=== PATIENT | male | born 1985 | race Asian ===

== ENCOUNTER 2017-03-17 10:00 | Inpatient (IN) | payer OTHER ==
[~2017-03-17] VITALS: Ht 172.7 cm; Wt 90.3 kg
[2017-03-17 10:40] LABS: BASOPHIL % 0.2 % (0-2); PLATELET COUNT 350 x10^3mcL (130-400); RED CELL DISTRIBUTION WIDTH 14.2 % (11.5-14.5)
[2017-03-17 10:48] LABS: CALCIUM 8.5 mg/dL (8.5-10.1); CARBON DIOXIDE 25.6 mmol/L (21-32); CHLORIDE SERUM 100 mmol/L (98-107); CREATININE SERUM 1.2 mg/dL (0.7-1.3); GFR1 > 60 mL/min; GLUCOSE SERUM 202 mg/dL (74-106); POTASSIUM SERUM 3.3 mmol/L (3.5-5.1); SODIUM SERUM 137 mmol/L (136-145)
[2017-03-17 10:52] LABS: ALBUMIN 4.3 g/dL (3.4-5.0); ALKALINE PHOSPHATASE 83 U/L (46-116); ALT/SGPT 42 U/L (16-63); AST/SGOT 17 U/L (15-37); BILIRUBIN TOTAL 0.4 mg/dL (0.20-1.00); MAGNESIUM 1.5 mg/dL (1.8-2.4); TOTAL PROTEIN, SERUM 7.8 g/dL (6.4-8.2)
[2017-03-17] MEDS ORDERED: BENADRYL ALLERG25 M1 PO (12:09)
[2017-03-17] MEDS ORDERED: CLONAZEPAM0.5 MG (12:09)
[2017-03-17] MEDS ORDERED: GEODON20 MG PO (12:09)
[2017-03-17 12:32] LABS: microscopic required? NO
[2017-03-17 12:40] LABS: UA SPECIFIC GRAVITY <=1.005 (1.005-1.035); urine erythrocyte NEGATIVE (NEGATIVE)
[2017-03-17 12:52] LABS: AMPHETAMINE QUAL UR NONE DETECTED (NEG <=1000)
[2017-03-17 13:02] LABS: PHOSPHOROUS 1.9 mg/dL (2.5-4.9)
[2017-03-17 13:06] LABS: CHOLESTEROL/HDL RATIO 4.2
[2017-03-17 13:13] LABS: FREE T4 1.06 ng/dL (0.76-1.46); FREE THYROXINE INDEX 2.8 ug/dL (1.4-4.5); T4(THYROXINE) 7.1 ug/dL (4.7-13.3)
[2017-03-17 13:26] LABS: T3 TOTAL 1.14 ng/mL
[2017-03-17 13:34] VITALS: BP 156/89
[2017-03-17 13:44] VITALS: BP 156/89
[2017-03-17] MEDS ORDERED: CLONAZEPAM0.5 MG PO (15:16)
[2017-03-17] MEDS ORDERED: BENZTROPINE MESY2 MG PO (15:21)
[2017-03-17 17:05] VITALS: BP 135/86
[2017-03-17 21:32] VITALS: BP 125/83
[2017-03-18 06:17] VITALS: BP 108/63
[2017-03-18 06:33] LABS: BASOPHIL % 0.3 % (0-2); PLATELET COUNT 296 x10^3mcL (130-400)
[2017-03-18 06:35] LABS: CALCIUM 8.2 mg/dL (8.5-10.1); CARBON DIOXIDE 25.4 mmol/L (21-32); CHLORIDE SERUM 106 mmol/L (98-107); CREATININE SERUM 1.1 mg/dL (0.7-1.3); GFR1 > 60 mL/min; GLUCOSE SERUM 91 mg/dL (74-106); MAGNESIUM 2.2 mg/dL (1.8-2.4); PHOSPHOROUS 3.2 mg/dL (2.5-4.9); SODIUM SERUM 141 mmol/L (136-145)
[2017-03-18 06:45] LABS: RED CELL DISTRIBUTION WIDTH 14.6 % (11.5-14.5)
[2017-03-18 08:08] VITALS: BP 138/90
== END 2017-03-18 11:18 | disposition left against medical advice (07) | DRG 812 ==
LOC: ED 10:00 → DU 12:01
PROVIDERS: Emergency Medicine; ADMIT Family Medicine
DX: T45.0X1A Poisoning by antiallergic and antiemetic drugs, accidental (unintentional), initial encounter (principal); G92 Toxic encephalopathy; E83.39 Other disorders of phosphorus metabolism; E83.42 Hypomagnesemia; F20.3 Undifferentiated schizophrenia; F41.0 Panic disorder [episodic paroxysmal anxiety]; F19.129 Other psychoactive substance abuse with intoxication, unspecified; F17.210 Nicotine dependence, cigarettes, uncomplicated; E87.6 Hypokalemia; E78.5 Hyperlipidemia, unspecified; E66.9 Obesity, unspecified; Z68.30 Body mass index [BMI] 30.0-30.9, adult; Y92.003 Bedroom of unspecified non-institutional (private) residence as the place of occurrence of the external cause
CPT/HCPCS: 80307; 82962; 83880; 84439; G0480; J2060; J3475; J3486; J7030

== ENCOUNTER 2019-03-08 11:19 | Emergency (ER) | payer OTHER ==
[~2019-03-08] VITALS: Ht 172.7 cm; Wt 92.8 kg
[~2019-03-08 11:19] MED LIST: BENADRYL ALLERG25 M1 PO; BENZTROPINE MESY2 MG PO; CLONAZEPAM0.5 MG; CLONAZEPAM0.5 MG PO; GEODON20 MG PO
[2019-03-08 11:28] VITALS: BP 138/80; Ht 172.7 cm; Wt 92.8 kg
== END 2019-03-08 13:06 | disposition home or self-care (01) ==
LOC: ED 11:19
DX: M25.512 Pain in left shoulder (principal); F20.9 Schizophrenia, unspecified; F31.9 Bipolar disorder, unspecified